=== PATIENT | female | born 1970 | race African-American/Black ===

== ENCOUNTER 2020-10-14 09:41 | Outpatient (CLI) | payer OTHER, SELFPAY ==
--- NOTE | ~2020-10-14 | MM_ITS ---
EXAMINATION: MM screening warren BI w lorin HISTORY: Screening TECHNIQUE: Craniocaudal and mediolateral oblique 3-D tomosynthesis images were obtained and synthetic 2-D images were generated. CAD analysis was submitted and interpreted. COMPARISON: Comparison to multiple prior studies sequentially, with oldest reviewed study dated 09/2014. BREAST PARENCHYMAL COMPOSITION: The breasts are heterogeneously dense, which may obscure small masses . FINDINGS: There is no evidence of suspicious mass, calcification, or architectural distortion to sugg est malignancy in either breast. There has been no suspicious interval change. IMPRESSION: 1. No mammographic evidence of malignancy. 2. Recommend routine screening mammography in one year. BI-RADS Category 1: Negative Reviewed, dictated and finalized at location A.
== END 2020-10-14 09:42 | disposition home or self-care (01) ==
LOC: ANHIMG 09:46
PROVIDERS: PCP Family Medicine; Visit Provider Obstetrics & Gynecology Gynecology
DX: Z12.31 Encounter for screening mammogram for malignant neoplasm of breast (principal)
CPT/HCPCS: 77063; 77067

== ENCOUNTER 2020-12-22 12:48 | Outpatient (CLI) | payer OTHER, SELFPAY ==
--- NOTE | ~2020-12-22 | XR_ITS ---
EXAMINATION: XR lumbar spine 2-3V DATE: 12/22/2020 13:42 INDICATION: Low back pain TECHNIQUE: Anteroposterior and lateral views of the lumbar spine, and cone-down lateral view of the l umbosacral junction were obtained. COMPARISON: None. FINDINGS: There is no fracture, dislocation, or subluxation. The vertebral body heights and intervert ebral disc spaces are normal. Small degenerative osteophytes project from the anterior endplates of m ultiple vertebral bodies. IMPRESSION: 1. Mild lumbar spondylosis without acute findings. Reviewed, dictated and finalized at location A.
--- NOTE | ~2020-12-22 | XR_ITS ---
EXAMINATION: XR thoracic spine 2V DATE: 12/22/2020 13:42 INDICATION: Back pain TECHNIQUE: AP, lateral and lateral swimmer's views of the thoracic spine were obtained. COMPARISON: None. FINDINGS: There is no fracture, dislocation, or subluxation. Mild loss of intervertebral disc space h eight is seen in the midthoracic spine. The vertebral body heights are maintained. Small degenerative osteophytes project from the anterior endplates of multiple vertebral bodies. IMPRESSION: 1. Mild thoracic spondylosis without acute findings or significant interval change. Reviewed, dictated and finalized at location A. IMPRESSION: 1. Mild thoracic spondylosis without acute findings or significant interval suad nge.
== END 2020-12-22 12:49 | disposition home or self-care (01) ==
LOC: ANHIMG 13:13
PROVIDERS: PCP Family Medicine; Visit Provider Family Medicine
DX: M79.10 Myalgia, unspecified site (principal); M47.894 Other spondylosis, thoracic region; M47.896 Other spondylosis, lumbar region
CPT/HCPCS: 72070; 72100

== ENCOUNTER 2021-12-15 08:52 | Outpatient (CLI) | payer OTHER, SELFPAY ==
--- NOTE | ~2021-12-15 | MM_ITS ---
EXAMINATION: MM screening warren BI w lorin HISTORY: Screening TECHNIQUE: Craniocaudal and mediolateral oblique 3-D tomosynthesis images were obtained and synthetic 2-D images were generated. CAD analysis was submitted and interpreted. COMPARISON: Comparison to multiple prior studies sequentially, with oldest reviewed study dated 06/30. BREAST PARENCHYMAL COMPOSITION: The breasts are heterogeneously dense, which may obscure small masses FINDINGS: There is no evidence of suspicious mass, calcification, or architectural distortion to sugg est malignancy in either breast. There has been no suspicious interval change. IMPRESSION: 1. No mammographic evidence of malignancy. 2. Recommend routine screening mammography in one year. BI-RADS Category 1: Negative Reviewed, dictated and finalized at location A.
== END 2021-12-15 08:53 | disposition home or self-care (01) ==
LOC: ANHIMG 08:58
PROVIDERS: PCP Family Medicine; Visit Provider Nurse Practitioner Obstetrics & Gynecology
DX: Z12.31 Encounter for screening mammogram for malignant neoplasm of breast (principal)
CPT/HCPCS: 77063; 77067

== ENCOUNTER 2023-01-27 08:05 | Outpatient (CLI) | payer OTHER, SELFPAY ==
--- NOTE | ~2023-01-27 | MM_ITS ---
EXAMINATION: MM screening warren BI w lorin HISTORY: Screening mammogram TECHNIQUE: Craniocaudal and mediolateral oblique 3-D tomosynthesis images were obtained and synthetic 2-D images were generated. Bilateral rotated lateral CC views. CAD analysis was submitted and interp reted. COMPARISON: 12/15/2021, 10/14/2020, 01/29/2019 bilateral screening mammogram examinations BREAST PARENCHYMAL COMPOSITION: The breasts are heterogeneously dense, which may obscure small masses . FINDINGS: Subtle grouped microcalcifications are suggested in the anterior lower mid left breast; blayne gnostic left mammogram and magnification views is recommended. Otherwise there is no evidence of suspicious mass, calcification, or architectural distortion to sugg est malignancy in either breast. There has been no other suspicious interval change. IMPRESSION: 1. Suggestion of subtle grouped microcalcifications in the lower mid left breast 2. Diagnostic left mammogram with magnification views is recommended BI-RADS Category 0: Incomplete: Needs additional imaging evaluation. Reviewed, dictated and finalized at location A. CULTURAL PLOW OPERATOR IMPRESSION: 1. Suggestion of subtle grouped microcalcifications in the lower mid left breas t 2. Diagnostic left mammogram with magnification views is recommended BI-RADS Category 0: Incomplete: Needs additional imaging evaluation.
== END 2023-01-27 08:06 | disposition home or self-care (01) ==
PROVIDERS: PCP Family Medicine; Visit Provider Family Medicine
DX: Z12.31 Encounter for screening mammogram for malignant neoplasm of breast (principal); R92.8 Other abnormal and inconclusive findings on diagnostic imaging of breast
CPT/HCPCS: 77063; 77067

== ENCOUNTER 2023-02-22 09:49 | Outpatient (CLI) | payer OTHER, SELFPAY ==
--- NOTE | ~2023-02-22 | MM_ITS ---
EXAMINATION: MM diagnostic mammo unilat LT HISTORY: Suggestion of subtle grouped microcalcifications in the lower mid left breast on 01/27/2023 screening mammogram examination TECHNIQUE: Additional 3-D tomosynthesis images of the left breast were performed and synthetic 2-D im ages were generated. Left breast ML, MLO and CC magnification views CAD analysis was submitted and in terpreted. COMPARISON: 01/28/2020 bilateral screening mammogram FINDINGS: A few scattered subtle punctate benign microcalcifications are identified. No suspicious ca lcifications are identified. No suspicious mass lesion, architectural distortion, skin thickening or retraction is noted. IMPRESSION: 1. Benign finding 2. Routine mammographic screening is recommended BI-RADS Category 2: Benign finding(s). Reviewed, dictated and finalized at location A. MO CEMENTING FOLDER OPERATOR
== END 2023-02-22 09:50 | disposition home or self-care (01) ==
PROVIDERS: PCP Family Medicine; Visit Provider Nurse Practitioner Obstetrics & Gynecology
DX: R92.1 Mammographic calcification found on diagnostic imaging of breast (principal)
CPT/HCPCS: 77065

== ENCOUNTER 2024-02-14 09:30 | Outpatient (CLI) | payer OTHER, SELFPAY ==
--- NOTE | ~2024-02-14 | MM_ITS ---
EXAMINATION: MM screening warren BI w lorin HISTORY: Screening TECHNIQUE: Craniocaudal and mediolateral oblique 3-D tomosynthesis images were obtained and synthetic 2-D images were generated. CAD analysis was submitted and interpreted. COMPARISON: Comparison to multiple prior studies sequentially, with oldest reviewed study dated 01/04. BREAST PARENCHYMAL COMPOSITION: Dense: The breasts are heterogeneously dense, which may obscure small masses FINDINGS: There is a new focal asymmetry in the medial aspect of the right breast on CC view, middle third. The left breast is stable without evidence for malignancy. IMPRESSION: 1. New focal right breast asymmetry medially, middle third, seen on CC view only. 2. Additional mammographic views and possible breast ultrasound are recommended. BI-RADS Category 0: Incomplete: Needs additional imaging evaluation. Reviewed, dictated and finalized at location B. VERY DRIVER ASSISTANT IMPRESSION: 1. New focal right breast asymmetry medially, middle third, seen on CC view onl y. 2. Additional mammographic views and possible breast ultrasound are recommended . BI-RADS Category 0: Incomplete: Needs additional imaging evaluation.
== END 2024-02-14 09:31 | disposition home or self-care (01) ==
PROVIDERS: PCP Family Medicine; Visit Provider Nurse Practitioner
DX: Z12.31 Encounter for screening mammogram for malignant neoplasm of breast (principal); R92.8 Other abnormal and inconclusive findings on diagnostic imaging of breast
CPT/HCPCS: 77063; 77067

== ENCOUNTER 2024-02-25 13:04 | Outpatient (CLI) | payer OTHER, SELFPAY ==
--- NOTE | ~2024-02-25 | MM_ITS ---
EXAMINATION TYPE: MM diagnostic warren RT w lorin COMPARISON: 02/14/2024 and dating back to 10/14/2020 REASON FOR STUDY: Single view asymmetry on previous mammography dated 02/14/2024 TECHNIQUE: Right mediolateral oblique and craniocaudal views were obtained digitally with 3-D mammog shalonda (digital breast tomosynthesis) with CAD. Spot compression views were obtained. BREAST PARENCHYMAL COMPOSITION:Dense: The breasts are heterogeneously dense, which may obscure small masses. FINDINGS: The asymmetry completely effaces with spot compression likely a summation artifact (overlapping fibro glandular tissues) for which no further follow-up is needed IMPRESSION: No mammographic or tomographic evidence to suggest the presence of malignancy. BI-RADS CATEGORY: 2: Benign findings. RECOMMENDATION: Resumption of yearly mammography Reviewed, dictated and finalized at location A. IAL PROJECTS COORDINATOR
== END 2024-02-25 13:05 | disposition home or self-care (01) ==
LOC: ANHIMG 13:05
PROVIDERS: PCP Family Medicine; Visit Provider Nurse Practitioner
DX: R92.8 Other abnormal and inconclusive findings on diagnostic imaging of breast (principal)
CPT/HCPCS: 77061; 77065; G0279

== ENCOUNTER 2025-02-20 09:00 | Outpatient (CLI) | payer OTHER, SELFPAY ==
--- NOTE | ~2025-02-20 | MM_ITS ---
EXAMINATION: MM screening warren BI w lorin HISTORY: Screening TECHNIQUE: Craniocaudal and mediolateral oblique 3-D tomosynthesis images were obtained and synthetic 2-D images were generated. CAD analysis was submitted and interpreted. COMPARISON: Comparison to multiple prior studies sequentially, with oldest reviewed study dated 10/14/2020. BREAST PARENCHYMAL COMPOSITION: Dense: The breasts are heterogeneously dense, which may obscure small masses FINDINGS: There is no evidence of suspicious mass, calcification, or architectural distortion to suggest malignancy in either breast. There has been no suspicious interval change. IMPRESSION: 1. No mammographic evidence of malignancy. 2. Recommend routine screening mammography in one year. BI-RADS Category 1: Negative Reviewed, dictated and finalized at location [facility]. [employer]
--- OUTSIDE RECORDS SUMMARY | 2025-02-20 09:18 | XMS_ITS | Data Portability ---
Author Organization [facility] [address] [facility] [place] [address] Care Team Providers Care Body Service Team Member Name Role Phone ALEX ANDERSON Primary Care Provider [phone] Assessment Encounter Date Assessment Date Assessment LastModified by Organization Details LastModified Time 02/06/2025 02/06/2025 This 54 year old patient presents with symptoms most suggestive of viral upper respiratory tract infection , lung sounds clear through out. Oral pharynx mild erythema without edema Patient is discharged home in stable condition with expectant management. Return precautions were provided. Procedures: Pulse oximetry interpretation - not hypoxic. Review of medical records. DISPOSITION: Discharged home in stable condition. IMPRESSION: Acute upper respiratory tract infection, likely viral. viral laryngitis Not available 02/06/2025 12:24:50 Plan of Treatment Reminders Order Date Submit Date Provider Last Modified By Organization Details Last Modified Time Details Appointments ANY 15 2025 02:30P Bere Anderson MD Not available Not available Not available Lab influe nza virus A + B + SARS-C oV-2 (COVID 19) Ag panel, rapid IA, upper respir atory specim en 2024 025 In-Office Order, Internal Use Only DO Not Attach Compendium DO Not Attach Compendium, Do Not Delete/merge, [id number] 02/06/2025 12:25:26 rapid strep group A, throat 2024 025 In-Office Order, Internal Use Only DO Not Attach Compendium DO Not Attach Compendium, Do Not Delete/merge, [id number] 02/06/2025 12:25:26 Referral None record ed. Procedures None record ed. Surgeries None record ed. Imaging [facility] screen ing[facility] [address] [place], [address], 02/10/2025 11:08:28 MAMMO, screen ing, bilate [facility]al [facility] [address], [place], [address], 01/27/2025 16:50:40 Medication Orders losart an 100 mg tablet 2024 [facility] #[id number], [address] [place] [address], [id number], 01/27/2025 16:37:20 isosor bide mononi trate ER 120 mg tablet ,exten ded releas e 24 hr 2024 025 [facility] #[id number], [address] [place] [address], [id number], 01/27/2025 16:37:16 losart an 100 mg tablet 2024 025 [facility] #[id number], [address] [place] [address], [id number], 10/27/2024 15:37:23 isosor bide mononi trate ER 120 mg tablet ,exten ded releas e 24 hr 2024 025 [id number], [address] [place] [address], [id number], 10/27/2024 15:37:18 Patient TargetsNo targets recorded. Patient Instructions Encounter Date Encounter Id Patient Instructions Last Modified By Organization Details Last Modified Time 10/08/2024 [id number] A healthy lifestyle: care instructions Not available 10/20/2024 10:10:24 Quitting Tobacco : Care Instructions Not available 10/20/2024 10:10:24 10/27/2024 [id number] mammogram: about this test Not available 10/27/2024 15:46:21 allergies: care instructions Not available 10/27/2024 15:41:39 A healthy lifestyle: care instructions Not available 10/27/2024 15:37:12 back care and preventing injuries: care instructions Not available 10/27/2024 15:37:12 01/27/2025 [id number] allergies: care instructions Not available 01/27/2025 16:37:11 mammogram: about this test Not available 01/27/2025 16:37:11 A healthy lifestyle: care instructions Not available 01/27/2025 16:37:11 back care and preventing injuries: care instructions Not available 01/27/2025 16:37:10 learning about healthy weight Not available 01/27/2025 16:37:10 02/06/2025 [id number] A healthy lifestyle: care instructions Not available 02/06/2025 12:25:25 Continue to take Tylenol and Motrin for body aches and fevers Push oral hydration- drink lots of water Get plenty of rest Continue voice rest to help your voice return. Follow up with your PCP in 3-5 days If you develop any worsening symptoms/ shortness of breath/ chest pain unable to keep liquids down or any other worsening symptoms then proceed to the ER. Not available 02/06/2025 12:26:05 02/10/2025 [id number] mammogram: about this test Not available 02/10/2025 11:07:37 allergies: care instructions Not available 02/10/2025 11:07:37 A healthy lifestyle: care instructions Not available 02/10/2025 11:07:37 Reason for Referral None Reported. Results Created Date Observation Date Name Description Value Unit Range Abnormal Flag Note LastModifiedBy Organization Detail LastModifiedTime 02/07/20 02/06/2025 influ kalina virus A + B + SARS- CoV-2 (COVI D19) Ag panel , rapid IA, upper respi rator y speci men Flu A negati ve Not Available In-Office Order Internal Use Only DO Not Attach Compendium DO Not Attach Compendium, Do Not Delete/merge, [id number] 02/06/2025 12:11:18 02/07/20 25 02/06/2025 influ kailna virus A + B + SARS- CoV-2 (COVI D19) Ag panel , rapid IA, upper respi rator y speci men Flu B negati ve Not Available In-Office Order Internal Use Only DO Not Attach Compendium DO Not Attach Compendium, Do Not Delete/merge, [id number] 02/06/2025 12:11:18 02/07/20 25 02/06/2025 influ kalina virus A + B + SARS- CoV-2 (COVI D19) Ag panel , rapid IA, upper respi rator y speci men Rapid SARS CoV 2 Ag, QL IA, respiratory specimen negati ve Not Available In-Office Order Internal Use Only DO Not Attach Compendium DO Not Attach Compendium, Do Not Delete/merge, [id number] 02/06/2025 12:11:18 02/07/2002/06/2025 rapid strep group A, throa t Strep negati ve Not Available In-Office Order Internal Use Only DO Not Attach Compendium DO Not Attach Compendium, Do Not Delete/merge, [id number] 02/06/2025 12:11:22 Result Notes None recorded. Problems Name Problem SNOMED Code Status Onset Date Resolution Date Notes Provider Name and Address Organization Details Recorded Time Allergic rhinitis 56910959 Active Not Available [facility] 4 20:16:06 Tuberculos is screening Active 2016 Not Available [facility] 4 20:16:06 Amenorrhea 04033756 Active 2016 Not Available [facility] 4 20:16:06 Physical examinatio n 7589361 Active 2018 Not Available [facility] 4 20:16:06 Requires tetanus and diphtheria vaccinatio n 693734509 Active [address] [facility] 4 20:16:07 Acute sinusitis 23555291 Active 2021 Not Available [facility] 4 20:16:06 Pharyngiti s 159288669 Active 2021 Not Available [facility] 4 20:16:06 Hyperlipid emia 08104696 Active 2021 Not Available [facility] 4 20:16:06 Polyneurop athy 80741346 Active 2021 Hilda Larsen MA null, [place] - [facility] 5 11:35:49 Lumbar spondylosi s 951818033 Active [address] [facility] 4 20:16:06 Neuropathy 437825927 Active 2021 Not Available [facility] 4 20:16:06 Left side sciatica 2084234991883 04 Active [address] [facility] 4 20:16:06 Blood pressure above reference range 05334831 Active [address] [facility] 4 20:16:06 Problem Notes None recorded. Procedures Surgical History Date Name Laterality Status Provider Name and Address Organization Details Recorded Time 4 Date of Last Mammogram completed Hilda Larsen [place] [facility] 07/25/2024 11:37:02 0 Date of Last Pap Smear completed Hilda Larsen [place] [facility] 07/25/2024 11:37:21 Imaging Results None recorded. Procedure Notes None recorded. Medical Equipment None Reported. Allergies Allergen ID Allergen Name Allergen Category Reaction Reaction Severity Criticality Documentation Date Start Date Code Code System Note Provider Name and Address Organization Details Recorded Time 369901 amlodipin e medicatio n edema mild Not available 06/25/2023 43633 RxNorm Alex Anderson MD Attn: Jeremy angelia,[address] [facility], [place], [address] [facility] [place] - [facility] 4 16:17:09 [id number] Substance with sulfonami de structure and antibacte rial mechanism of action (substanc e) medicatio n rash Not available low 08/03/20152018 56356 8003 SNOMED Hilda Larsen MA [facility], [place] - [facility] 5 11:34:50 Medications Name Sig Start Date Stop Date Status Note LastModified by Organization Details LastModified Time losartan 50 mg tablet TAKE 1 TABLET BY MOUTH EVERY DAY active Not Available Not Available No t Available cyclobenzap rine 10 mg tablet active Not Available Not Available Not Available amoxicillin 500 mg capsule 10/23 completed Not Available Not Available Not Available promethazin e-DM 6.25 mg-15 mg/5 mL oral syrup TAKE 5 ML BY MOUTH EVERY 4 HOURS FOR 10 DAYS active Not Available Not Available No t Available atorvastati n 20 mg tablet TAKE 1 TABLET BY MOUTH EVERY DAY active Not Available Not Available No t Available triazolam 0.25 mg tablet 10/23 completed Not Available Not Available Not Available triamcinolo ne acetonide 0.5 % topical cream APPLY A THIN LAYER TOPICALLY TO THE AFFECTED AREA TWICE DAILY active Not Available Not Available No t Available cetirizine 10 mg tablet TAKE 1 TABLET BY MOUTH EVERY DAY active Not Available Not Available No t Available azithromyci n 250 mg tablet TAKE 2 TABLETS (500 MG) BY ORAL ROUTE ONCE DAILY FOR 1 DAY THEN 1 TABLET (250 MG) BY ORAL ROUTE ONCE DAILY FOR 4 DAYS active Not Available Not Available No t Available ibuprofen 800 mg tablet TAKE 1 TABLET BY MOUTH THREE TIMES DAILY WITH FOOD active Not Available Not Available No t Available Lidocaine Viscous 2 % mucosal solution 07/04 completed Not Available Not Available Not Available fluconazole 150 mg tablet TAKE 1 TABLET BY MOUTH NEEDED FOR YEAST INFECTION . active Not Available Not Available No t Available hydrocodone 5 mg-acetamin ophen 325 mg tablet TAKE 1 TABLET BY MOUTH EVERY 6 HOURS NEEDED FOR PAIN active Not Available Not Available No t Available prednisone 20 mg tablet Take 3 tablets every day by oral route for 3 days. active Not Available Not Available No t Available isosorbide mononitrate ER 30 mg tablet,exte nded release 24 hr TAKE 1 TABLET BY MOUTH EVERY DAY 10/05 completed Not Available Not Available Not Available Tubersol 5 tub. unit/0.1 mL intradermal injection solution Inject 0.1 mL by intraderm al route. 2022 active Not Available Not Available Not Avai lable amlodipine 5 mg tablet TAKE 1 TABLET BY MOUTH EVERY DAY 11/27 completed Not Available Not Available Not Available ciprofloxac in 500 mg tablet TAKE 1 TABLET BY MOUTH EVERY 12 HOURS FOR 10 DAYS 07/04 completed Not Available Not Available Not Available tramadol 50 mg tablet TAKE 1 TABLET BY MOUTH EVERY 6 HOURS NEEDED FOR PAIN active Not Available Not Available No t Available isosorbide mononitrate ER 120 mg tablet,exte nded release 24 hr Take 1 tablet every day by oral route for 90 days. 2024 active Not Available Not Available Not Avai lable Kenalog 40 mg/mL suspension for injection Take 1 mL by injection route. 07/04 completed Not Available Not Available Not Available isosorbide mononitrate ER 60 mg tablet,exte nded release 24 hr TAKE 1 TABLET BY MOUTH EVERY DAY active Not Available Not Available No t Available amoxicillin 875 mg tablet TAKE 1 TABLET BY MOUTH EVERY 12 HOURS FOR 10 DAYS 07/04 completed Not Available Not Available Not Available baclofen 10 mg tablet Take 1 tablet twice a day by oral route for 30 days. 07/04 completed Not Available Not Available Not Available benzonatate 100 mg capsule TAKE 1 CAPSULE BY MOUTH THREE TIMES DAILY NEEDED FOR COUGH active Not Available Not Available No t Available doxycycline monohydrate 100 mg capsule 10/23 completed Not Available Not Available Not Available pantoprazol e 40 mg tablet,donita yed release active Not Available Not Available Not Available diphenhydra mine 25 mg tablet Take 1 tablet every day by oral route at bedtime for 30 days. 2021 active Not Available Not Available Not Avai lable Banophen 25 mg capsule TAKE 1 CAPSULE BY MOUTH EVERY DAY AT BEDTIME active Not Available Not Available No t Available montelukast 10 mg tablet TAKE 1 TABLET BY MOUTH EVERY DAY DIRECTED 2024 active Not Available Not Available Not Avai lable azelastine 137 mcg (0.1 %) nasal spray USE 2 SPRAYS IN EACH NOSTRIL EVERY DAY active Not Available Not Available No t Available ibuprofen 600 mg tablet 07/04 completed Not Available Not Available Not Available methylpredn isolone 4 mg tablets in a dose pack Take 1 dose pk by oral route. 11/27 completed Not Available Not Available Not Available Vitamin D2 1,250 mcg (50,000 unit) capsule 10/23 completed Not Available Not Available Not Available losartan 100 mg tablet TAKE 1 TABLET BY MOUTH EVERY DAY 2024 active Not Available Not Available Not Avai lable fluticasone propionate 50 mcg/actuati on nasal spray,suspe nsion SHAKE LIQUID AND USE 2 SPRAYS IN EACH NOSTRIL EVERY DAY 2024 active Not Available Not Available Not Avai lable loratadine 10 mg tablet TAKE 1 TABLET BY MOUTH EVERY DAY 07/04 completed Not Available Not Available Not Available naproxen 500 mg tablet TAKE 1 TABLET BY MOUTH TWICE DAILY active Not Available Not Available No t Available amoxicillin 875 mg-potassiu m clavulanate 125 mg tablet Take 1 tablet every 12 hours by oral route for 7 days, for sinusitis . 11/27 completed Not Available Not Available Not Available Ventolin HFA 90 mcg/actuati on aerosol inhaler 07/04 completed Not Available Not Available Not Available cyclobenzap rine 5 mg tablet TAKE 1 TABLET BY MOUTH TWICE DAILY active Not Available Not Available No t Available 1.5/30 (28) 1.5 mg-30 mcg (21)/75 mg (7) tablet TAKE 1 TABLET BY MOUTH EVERY DAY active Not Available Not Available No t Available Suprep Bowel Prep Kit 17.5 gram-3.13 gram-1.6 gram oral solution Take 300 mL by oral route for 1 day. 10/23 completed Not Available Not Available Not Available Robafen DM Cough 10 mg-100 mg/5 mL oral liquid TAKE 10 ML BY MOUTH FOUR TIMES DAILY NEEDED FOR 7 DAYS 07/04 completed Not Available Not Available Not Available Robitussin Cough-Chest Congestion DM 5 mg-100 mg/5 mL oral liquid Take 10 mL 4 times a day by oral route for 7 days. 2021 active Not Available Not Available Not Avai lable Vitals Date Recorded Body height Body mass index (BMI) Body weight Provider Name and Address Organization Details Last Updated DateTime 10/08/2024 160.02 cm 27.1 kg/m2 13659.33 g Darrion Armstrong LPN [place] - [facility] 10/08/2024 11:53:13 Date Recorded Heart rate Systolic And Diastolic Provider Name and Address Organization Details Last Updated DateTime 10/08/2024 96 /min 127/92 mm[Hg] Not Available [facility] 0 10/08/2024 07:56:55 Date Recorded Heart rate Systolic And Diastolic Provider Name and Address Organization Details Last Updated DateTime 10/09/2024 82 /min 136/92 mm[Hg] Not Available [facility] 0 10/09/2024 07:25:33 Date Recorded Heart rate Heart rate Systolic And Diastolic Systolic And Diastolic Provider Name and Address Organization Details Last Updated DateTime 10/16/2024 77 /min 78 /min 156/94 mm[Hg] 147/91 mm[Hg] Not Available [facility] 10/20/2024 07:22:44 Date Recorded Heart rate Systolic And Diastolic Provider Name and Address Organization Details Last Updated DateTime 10/20/2024 91 /min 129/87 mm[Hg] Not Available [facility] 0 10/20/2024 07:22:44 Date Recorded Heart rate Systolic And Diastolic Provider Name and Address Organization Details Last Updated DateTime 10/24/2024 95 /min 119/85 mm[Hg] Not Available [facility] 0 10/24/2024 07:37:01 Date Recorded Body height Body mass index (BMI) Body weight Oxygen saturation Heart rate Respiratory rate Body temperature Systolic And Diastolic Provider Name and Address Organization Details Last Updated DateTime 160.02 cm 27.7 kg/m2 25093.5 1 g 98 % 79 /min 18 /min 98.4 [degF] 158/85 mm[Hg] Adolfo Crews MA [place] - [facility] 15:30:33 Date Recorded Heart rate Systolic And Diastolic Provider Name and Address Organization Details Last Updated DateTime 10/27/2024 93 /min 138/85 mm[Hg] Not Available [facility] 0 10/27/2024 06:20:51 Date Recorded Heart rate Heart rate Systolic And Diastolic Systolic And Diastolic Provider Name and Address Organization Details Last Updated DateTime 10/28/2024 82 /min 93 /min 116/80 mm[Hg] 124/85 mm[Hg] Not Available [facility] 10/28/2024 07:16:08 Date Recorded Heart rate Systolic And Diastolic Provider Name and Address Organization Details Last Updated DateTime 10/30/2024 85 /min 146/90 mm[Hg] Not Available [facility] 0 11/01/2024 08:40:06 Date Recorded Heart rate Systolic And Diastolic Provider Name and Address Organization Details Last Updated DateTime 11/12/2024 86 /min 144/85 mm[Hg] Not Available [facility] 0 11/24/2024 08:52:54 Date Recorded Heart rate Heart rate Systolic And Diastolic Systolic And Diastolic Provider Name and Address Organization Details Last Updated DateTime 11/24/2024 93 /min 90 /min 111/78 mm[Hg] 104/68 mm[Hg] Not Available [facility] 11/25/2024 08:03:10 Date Recorded Heart rate Systolic And Diastolic Provider Name and Address Organization Details Last Updated DateTime 11/25/2024 89 /min 135/89 mm[Hg] Not Available [facility] 0 11/25/2024 08:03:10 Date Recorded Heart rate Systolic And Diastolic Provider Name and Address Organization Details Last Updated DateTime 11/26/2024 83 /min 136/88 mm[Hg] Not Available [facility] 0 11/26/2024 07:22:38 Date Recorded Heart rate Systolic And Diastolic Provider Name and Address Organization Details Last Updated DateTime 11/28/2024 82 /min 149/90 mm[Hg] Not Available [facility] 0 11/28/2024 07:33:30 Date Recorded Heart rate Systolic And Diastolic Provider Name and Address Organization Details Last Updated DateTime 12/05/2024 76 /min 160/100 mm[Hg] Not Available [facility] 12/05/2024 07:28:16 Date Recorded Heart rate Systolic And Diastolic Provider Name and Address Organization Details Last Updated DateTime 12/14/2024 72 /min 164/94 mm[Hg] Not Available [facility] 1 06:18:44 Date Recorded Heart rate Systolic And Diastolic Provider Name and Address Organization Details Last Updated DateTime 12/15/2024 70 /min 153/95 mm[Hg] Not Available [facility] 1 06:18:44 Date Recorded Heart rate Systolic And Diastolic Provider Name and Address Organization Details Last Updated DateTime 12/21/2024 80 /min 136/90 mm[Hg] Not Available [facility] 1 06:43:07 Date Recorded Heart rate Systolic And Diastolic Provider Name and Address Organization Details Last Updated DateTime 12/28/2024 82 /min 148/96 mm[Hg] Not Available [facility] 1 07:18:47 Date Recorded Heart rate Systolic And Diastolic Provider Name and Address Organization Details Last Updated DateTime 12/29/2024 98 /min 144/96 mm[Hg] Not Available [facility] 1 03/06/2024 05:08:02 Date Recorded Heart rate Systolic And Diastolic Provider Name and Address Organization Details Last Updated DateTime 01/04/2025 75 /min 132/76 mm[Hg] Not Available [facility] 1 03/06/2024 05:08:54 Date Recorded Heart rate Systolic And Diastolic Provider Name and Address Organization Details Last Updated DateTime 01/05/2025 97 /min 143/89 mm[Hg] Not Available [facility] 1 03/07/2024 07:06:06 Date Recorded Heart rate Systolic And Diastolic Provider Name and Address Organization Details Last Updated DateTime 01/07/2025 82 /min 147/101 mm[Hg] Not Available [facility] 01/07/2025 07:11:29 Date Recorded Heart rate Systolic And Diastolic Provider Name and Address Organization Details Last Updated DateTime 01/08/2025 85 /min 151/101 mm[Hg] Not Available [facility] 01/14/2025 14:45:20 Date Recorded Heart rate Systolic And Diastolic Provider Name and Address Organization Details Last Updated DateTime 01/13/2025 71 /min 171/92 mm[Hg] Not Available [facility] 1 03/25/2024 06:37:17 Date Recorded Heart rate Systolic And Diastolic Provider Name and Address Organization Details Last Updated DateTime 01/23/2025 78 /min 143/89 mm[Hg] Not Available [facility] 1 03/25/2024 06:37:17 Date Recorded Heart rate Systolic And Diastolic Provider Name and Address Organization Details Last Updated DateTime 01/25/2025 96 /min 124/81 mm[Hg] Not Available [facility] 1 03/27/2024 05:50:39 Date Recorded Heart rate Heart rate Systolic And Diastolic Systolic And Diastolic Provider Name and Address Organization Details Last Updated DateTime 01/26/2025 110 /min 111 /min 95/71 mm[Hg] 108/80 mm[Hg] Not Available [facility] 01/27/2025 06:10:33 Date Recorded Body height Body mass index (BMI) Body weight Oxygen saturation Heart rate Respiratory rate Body temperature Systolic And Diastolic Provider Name and Address Organization Details Last Updated DateTime 160.02 cm 25.7 kg/m2 80821.8 9 g 99 % 79 /min 18 /min 98 [degF] 124/79 mm[Hg] Adolfo Crews MA [facility] 15:56:06 Date Recorded Heart rate Heart rate Systolic And Diastolic Systolic And Diastolic Provider Name and Address Organization Details Last Updated DateTime 01/27/2025 82 /min 74 /min 118/86 mm[Hg] 113/80 mm[Hg] Not Available [facility] 02/04/2025 09:16:31 Date Recorded Heart rate Systolic And Diastolic Provider Name and Address Organization Details Last Updated DateTime 02/04/2025 89 /min 132/73 mm[Hg] Not Available [facility] 1 04/07/2024 09:16:29 Date Recorded Body height Body mass index (BMI) Body weight Oxygen saturation Heart rate Respiratory rate Body temperature Systolic And Diastolic Provider Name and Address Organization Details Last Updated DateTime 160.02 cm 26.6 kg/m2 05009.6 1 g 96 % 76 /min 18 /min 98.4 [degF] 172/84 mm[Hg] Chandrika Sullivan MA [place] - [facility] 12:10:03 Date Recorded Body height Body mass index (BMI) Body weight Oxygen saturation Heart rate Respiratory rate Body temperature Systolic And Diastolic Provider Name and Address Organization Details Last Updated DateTime 5 160.02 cm 26.2 kg/m2 54517.3 7 g 97 % 85 /min 18 /min 97.9 [degF] 147/85 mm[Hg] Adolfo Crews MA [facility] 5 10:28:05 Social History Question Answer Notes LastModified by Organizat ion Details LastModified Time Tobacco Smoking Status Former Smoker LAQUITA Borden [facility] 12/20/2015 14:24:00 Do You Have An Advance Directive? No [email or web address] Information not available 07/04/2021 How Often Do You Travel On An Airplane? None Information not available 12/20/2015 Animal Exposure? No Informat ion not available 12/20/2015 Are You Blind Or Do You Have Difficulty Seeing? No Wears Glasses Information not available 09/27/2020 What Is Your Level Of Caffeine Consumption? Moderate Information not available 12/20/2015 In The 14 Days Before Symptom Onset, Have You Had Close Contact With A Laboratory-confir med COVID-19 While That Case Was Ill? No Information not available 09/27/2020 In The 14 Days Before Symptom Onset, Have You Had Close Contact With A Person Who Is Under Investigation For COVID-19 While That Person Was Ill? No Information not available 09/27/2020 Have You Been To An Area Known To Be High Risk For COVID-19? No Information not available 09/27/2020 Are You Deaf Or Do You Have Serious Difficulty Hearing? No Information not available 09/27/2020 What Type Of Diet Are You Following? REGULAR Information not available 12/20/2015 Which Illicit Or Recreational Drugs Have You Used? None Information not available 12/20/2015 Exposure To Cat Litter No Information not available 12/20/2015 Are There Any Guns Present In Your Home? No Information not available 07/25/2024 Legally Blind In One Or Both Eyes? No Information no t available 12/20/2015 Do You Have A Medical Power Of Sustainable Communities Designer? No [email or web address] Information not available 10/07/2021 What Was The Date Of Your Most Recent Tobacco Screening? 02/06/2025 Information not available 02/06/2025 How Many Children Do You Have? 1 Information not available 09/27/2020 What Is Your Current Pack Years? 10packyears Information not available 08/27/2023 What Is Your Relationship Status? Single Information not available 09/27/2020 Do You Use Your Seat Belt Or Car Seat Routinely? Yes Information not available 09/27/2020 Are You Sexually Active? Yes Information not available 07/25/2024 Do You Have Smoke And Carbon Monoxide Detectors In Your Home? Yes Information not available 09/27/2020 Are You Passively Exposed To Smoke? No Information no t available 09/27/2020 How Much Tobacco Do You Smoke? 0.25 PPD Information not available 12/20/2015 Snorkel/SCUBA No Information not available 12/20/2015 Do You Use Sunscreen Routinely? No Information not available 07/25/2024 Swim Often No Information no t available 12/20/2015 Has Tobacco Cessation Counseling Been Provided? Yes [email or web address] Information not available 10/08/2024 On What Date Was Tobacco Cessation Counseling Provided? 02/06/2025 Information not available 02/06/2025 Sex: Female Functional Status Question Answer Note LastModified by Organizat ion Details LastModified Time Do you use any illicit or recreational drugs? No Denies Information not available 09/27/2020 Do you or have you ever used any other forms of tobacco or nicotine? Yes Information not available 07/15/2022 What is your level of alcohol consumption? None Denies Information not available 09/27/2020 Do you or have you ever used smokeless tobacco? Never used smokeless tobacco Information not available 08/27/2023 Are you currently employed? Yes Information not available 09/27/2020 Are you able to care for yourself independently? Yes Information not available 12/20/2015 Do you or have you ever used e-cigarettes or vape? Current user of electronic cigarettes vape user Information not available 07/15/2022 What is your exercise level? None Information not available 08/27/2023 Mental Status Question Answer Note LastModified by Organization D etails LastModified Time Do you feel stressed (tense, restless, nervous, or anxious, or unable to sleep at night)? [id number] Information not available 08/27/2023 Family History Nothing Reported. Medical History Condition Response Allergies/Hayfever Y Coronary Artery Disease N Other N High Blood Pressure N Atrial Fibrillation N Thyroid Problems N Kidney or Bladder Problems N GI Problems N Depression N COPD N Blood Clots N Have you had a mammogram in the last yea r? Y Skin Problems N Anemia N Heart Attack (DC) N Anxiety Disorder N Diabetes N Muscle, Joint, or Bone Problems N Arthritis N Seizures/Epilepsy N Have you had a colonoscopy in the last 1 0 years? N Acid Reflux (GERD) N Cancer N Stroke N Asthma N Allergies N Have you had a PSA blood test in the las t year? N ADHD N Substance Abuse N High Cholesterol N Hepatitis N Liver Disease N Schizophrenia N Headaches N Hypertension N Heart Failure N Osteoporosis N Gynecological History Statement/Question Response Menses Monthly N Date of Last Pap Smear 10/10/2019 Current Control Method Menopause Date of Last Mammogram 02/25/2024 Date of LMP 06/12/2016 On BCP's at Conception? N Obstetrics History GPAL:G 0 P 0 0 0 0 Immunizations Vaccine Type Date Status Note Provider Nam e and Address Organization Details Recorded Time COVID-19, mRNA, LNP-S, PF, 100 mcg/0.5mL dose or 50 mcg/0.25mL dose 05/18/2020 completed Not Available [facility] 5 09:55:44 COVID-19, mRNA, LNP-S, PF, 100 mcg/0.5mL dose or 50 mcg/0.25mL dose 06/15/2020 completed Not Available [facility] 5 09:55:44 Tdap 11/14/[address] [facility] 03/22/2019 02:38:07 Hep A, adult 08/27/2023 completed Bony Barth [facility] [place] - [facility] 08/27/2023 16:18:11 Past Encounters Encounter ID Performer Location Encounter Start Date Encounter Closed Date Diagnosis/Indication Diagnosis SNOMED-CT Code Diagnosis ICD10 Code Diagnosis IMO Codes Diagnosis Note [id number] Alex Anderson MD [address] [address] 3 08/03/2015 16:16:05 08/09/2015 11:44:13 Adult health examination 861396958 Z00.00 labs done by OB... follow up once available. .. Allergic rhinitis 692724 04 J30.9 clear nasal discharge. .. [id number] Alex Anderson MD [address] [address] 3 11/02/2015 11:44:19 11/04/2015 03:48:25 Allergic rhinitis 55334340 J30.9 clear nasal discharge. .. Adult heal th examination 018527350 Z00.00 labs and follow up... [id number] Maik Khan MD [facility] ts [address] [place] [address] 2 12/20/2015 13:36:13 12/20/2015 17:43:17 Allergic rhinitis 97173872 J30.9 has Flonase; instructed in proper use [id number] Maik Khan MD [address] [address] 02/07/2016 11:48:44 02/08/2016 11:37:06 Allergic rhinitis 07777855 J30.9 has Flonase; instructed in proper use [id number] Alex Anderson MD [address] [address] 3 03/23/2016 11:51:17 03/27/2016 09:40:06 Allergic rhinitis 37160400 J30.9 meds and follow up... Adult heal th examination 537254978 Z00.00 labs and follow up... sees OB for pap/warren [id number] Alex Anderson MD [address] [address] 3 04/07/2016 10:13:57 04/27/2016 09:32:40 Adult health examination 242616795 Z00.00 labs and follow up... sees OB for pap/warren [id number] Maik Khan MD [facility] [address] [place] [address] 2 05/08/2016 10:09:08 05/08/2016 15:53:03 Allergic rhinitis 83318599 J30.9 has Flonase; instructed in proper use [id number] Alex Anderson MD [address] [address] 3 05/19/2016 11:55:15 05/22/2016 13:58:46 Allergic rhinitis 31111785 J30.9 meds and follow up... Low back pain 788376640 M54.5 [id number] Lowell Liu PA-C [address] [address] 3 05/27/2016 10:38:54 2016 08:11:58 Tuberculosis screening 553286194 Z11.1 [id number] Maik Khan MD [facility] [address] [place] [address] 08/14/2016 10:41:46 08/14/2016 14:08:30 Allergic rhinitis 73309934 J30.9 has Flonase; instructed in proper use [id number] Lowell Liu PA-C [address] [address] 3 08/26/2016 10:09:34 08/30/2016 08:07:31 Amenorrhea 08371312 N91.2 [id number] Alex Anderson MD [address] [address] 3 11/13/2016 10:13:40 11/13/2016 15:30:32 Allergic rhinitis 49592215 J30.9 meds and follow up... [id number] Alex Anderson MD [address] [address] 3 07/26/2017 11:38:46 07/26/2017 14:34:07 Allergic rhinitis 17997481 J30.9 meds and follow up... Adult heal th examination 063267515 Z00.00 labs and follow up... sees OB for pap/warren Family his tory of cancer of colon 589141522 Z80.0 mom had Ca at 57 y.o.... refer [id number] Alex Anderson MD [address] [address] 09/21/2017 11:42:18 09/25/2017 11:17:28 Allergic rhinitis 99928984 J30.9 meds and follow up... Nasacort.. . Low back pain 988355901 M54.5 PT and pain medication s... Lyrica samples.. [id number] Alex Anderson MD [place] [address] 3 09/25/2017 18:06:01 09/27/2017 09:57:38 Allergic rhinitis 78485827 J30.9 meds and follow up... Nasacort.. . Low back pain 456020382 M54.5 PT and pain medication s... start Lyrica 50 mg TID..... dx with OA by x-ray... Adult heal th examination 123888328 Z00.00 labs and follow up... sees OB for pap/warren [id number] Alex Anderson MD [place] [address] 3 10/10/2017 10:35:02 10/11/2017 09:13:13 Adult health examination 136591589 Z00.00 labs and follow up... sees OB for pap/warren [id number] Alex Anderson MD [place] [address] 3 12/11/2017 18:19:40 12/13/2017 08:32:26 Low back pain 929483711 M54.5 PT and pain medication s... start Lyrica 50 mg TID..... dx with OA by x-ray... [id number] Alex Anderson MD [place] [address] 3 04/17/2018 15:52:50 04/18/2018 08:36:44 Allergic rhinitis 12893471 J30.9 meds and follow up... Low back pain 849190376 M54.5 refill meds... Acute dermatitis 7904512 6 L30.9 rash on left arms... [id number] Alex Anderson MD [place] [address] 3 08/26/2018 14:43:13 08/26/2018 17:17:08 Allergic rhinitis 77181179 J30.9 meds and follow up... Low back pain 633020261 M54.5 refill meds... Acute dermatitis 1941391 6 L30.9 rash on left arms... Adult heal th examination 738693366 Z00.00 labs and follow up... sees OB for pap/warren... Dec 05, 2018, colonoscop y scheduled [id number] Shine He MD [place] [address] 3 11/14/2018 18:46:14 11/15/2018 09:59:01 Physical examination 8039660 Z04.9 Tuberculos is screening 332056117 Z11.1 Requires t etanus and diphtheria vaccination 632310592 Z28.3 [id number] Alex Anderson MD [address] [address] 3 02/06/2019 16:31:18 02/07/2019 08:58:06 Allergic rhinitis 36629504 J30.9 meds and follow up... Low back pain 916162352 M54.5 refill meds... Acute dermatitis 6863560 6 L30.9 rash on left arms... Adult heal th examination 314538923 Z00.00 labs and follow up... sees OB for pap/warren... Screening for malignant neoplasm of colon 115846705 Z12.11 refer [id number] Alex Anderson MD [address] [address] 3 09/02/2019 12:43:56 09/03/2019 07:43:15 Allergic rhinitis 04348436 J30.9 meds and follow up... Low back pain 613099648 M54.5 refill meds... Acute dermatitis 8257215 6 L30.9 rash on left arms... Adult heal th examination 510911330 Z00.00 labs and follow up... Screening for malignant neoplasm of colon 144889352 Z12.11 refer... Fatigue 50156546 R53.83 labs [id number] Alex Anderson MD [address] [address] 3 10/02/2019 12:25:43 10/03/2019 07:25:03 Allergic rhinitis 46344696 J30.9 meds and follow up... Low back pain 910055813 M54.5 refill meds... Acute dermatitis 5891217 6 L30.9 rash on left arms... Adult heal th examination 616446806 Z00.00 labs and follow up... Screening for malignant neoplasm of colon 329724200 Z12.11 refer... [id number] Alex Anderson MD [address] [address] 3 12/01/2019 11:44:04 12/02/2019 11:28:12 Allergic rhinitis 98825046 J30.9 meds and follow up... Low back pain 850796043 M54.5 refill meds... Acute dermatitis 6612364 6 L30.9 rash on left arms... Adult heal th examination 795828376 Z00.00 labs and follow up... Family his tory of cancer of colon 312214156 Z80.0 mom had Ca at 57 y.o.... refer [id number] Alex Anderson MD [address] [address] 3 12/31/2019 12:05:13 01/01/2020 08:31:23 Low back pain 906167930 M54.5 refill meds... stop ibuprofen. .. Allergic rhinitis 980885 04 J30.9 meds and follow up... Acute dermatitis 6013265 6 L30.9 rash on left arm... Adult heal th examination 686162416 Z00.00 labs and follow up... Family his tory of cancer of colon 727635903 Z80.0 mom had Ca at 57 y.o.... refer [id number] Ghassan Ernst MD [address] [address] 3 09/27/2020 17:50:57 09/28/2020 12:32:28 History and physical examination, pre-employment 746189276 Z02.1 [id number] Alex Anderson MD [address] [address] 3 12/14/2020 13:24:03 12/16/2020 17:27:01 Musculoskeletal pain 061960067 M79.10 x-ray Thoracic back pain 54924 8004 M54.6 x-ray Fatigue 42918462 R53.83 labs Screening colonoscopy 44 8467477 Z12.11 refer [id number] Alex Anderson MD [address] [address] 3 12/22/2020 10:02:35 12/23/2020 07:54:53 [id number] Alex Anderson MD [address] [address] 3 01/04/2021 09:32:00 01/06/2021 13:12:12 Allergic rhinitis 76775894 J30.9 meds and follow up... Hyperlipidemia 02780201 E78.5 start meds and chek in 3 months or so... Lumbar spondylosis 75705 0009 M47.896 refer to PT Family his tory of cancer of colon 919014434 Z80.0 mom had Ca at 57 y.o.... refer [id number] Alex Anderson MD [address] [address] 3 02/16/2021 10:27:07 02/17/2021 11:06:56 Allergic rhinitis 01091252 J30.9 meds and follow up... Hyperlipidemia 03662148 E78.5 start meds and chek in 3 months or so... Lumbar spondylosis 47792 0009 M47.896 refer to PT Family his tory of cancer of colon 455247852 Z80.0 mom had Ca at 57 y.o.... refer.. appt 04-06-2021 [id number] Shine He MD [address] [address] 3 03/17/2021 16:58:41 03/18/2021 06:58:15 Acute sinusitis 43607640 J01.90 [id number] Alex Anderson MD [address] [address] 3 04/08/2021 11:42:55 04/12/2021 08:36:23 Allergic rhinitis 10737735 J30.9 meds and follow up... Hyperlipidemia 06570778 E78.5 atorvastat in Lumbar spondylosis 35164 0009 M47.896 refer to PT Family his tory of cancer of colon 489249395 Z80.0 mom had Ca at 57 y.o.... refer.. appt 06-27-2021 [id number] Alex Anderson MD [address] [address] 3 06/07/2021 14:30:28 06/08/2021 21:01:25 Allergic rhinitis 65997610 J30.9 meds and follow up... [id number] Jan Hughes MD [facility] [address] [place] [address] 07/04/2021 09:43:47 08/04/2021 11:32:03 Chronic sinusitis 58308590 J32.9 [id number] Alex Anderson MD [address] [address] 3 07/19/2021 12:11:53 07/20/2021 11:54:05 Allergic rhinitis 50294453 J30.9 saw ENT and treated for chronic sinusitis. .. CT of sinuses pending... Hyperlipidemia 26716154 E78.5 atorvastat in Lumbar spondylosis 81980 0009 M47.896 referred to PT... sx improved.. . Family his tory of cancer of colon 284934901 Z80.0 mom had Ca at 57 y.o.... colonoscop y negative [id number] Jan Hughes MD [facility] [address] [place] [address] 08/15/2021 11:25:09 08/15/2021 14:35:44 Allergic rhinitis 55910427 J30.9 follow-up if not improving [id number] Shine He MD [address] [address] 3 09/08/2021 17:16:19 09/09/2021 11:29:05 Pharyngitis 692083838 J02.9 Chronic sinusitis 759926 00 J32.9 [id number] Alex Anderson MD [address] [address] 3 09/26/2021 10:46:13 09/26/2021 20:26:22 Allergic rhinitis 24837884 J30.9 saw ENT and treated for chronic sinusitis. .. Lumbar spondylosis 01769 0009 M47.896 referred to PT... sx improved.. . Hyperlipidemia 48644368 E78.5 atorvastat in Family his tory of cancer of colon 916345941 Z80.0 mom had Ca at 57 y.o.... refer.. appt 06-27-2021 , and colonoscop y to be repeated in 5 years.. Neuropathy 443410166 G62 .9 follow up labs Pain in left foot 946943 4110 25717 M79.672 xray [id number] SHIRA PEREZ DPM [facility] [address] [place] [address] 10/07/2021 08:58:10 10/07/2021 10:09:36 Plantar fasciitis 881856902 M72.2 Metatarsal justin of left foot 2747573589 23536 M77.42 Acquired s hort left Achilles tendon 7464615998 07979 M67.02 Calcaneal spur of left foot 5502712475 16905 M77.32 Pain in left foot 216138 5145 72659 M79.500 [id number] SHIRA PEREZ DPM [facility] [address] [place] [address] 10/07/2021 12:56:56 10/11/2021 14:28:27 Plantar fasciitis 641504485 M72.2 Metatarsal justin of left foot 6009203165 60130 M77.42 Acquired s hort left Achilles tendon 8437783259 43855 M67.02 Calcaneal spur of left foot 6077401668 62149 M77.32 Pain in left foot 602645 2722 99443 M79.970 [id number] Alex Anderson MD [address] [address] 3 10/19/2021 10:04:15 10/24/2021 14:52:41 Hyperlipidemia 34075777 E78.5 atorvastat in Allergic rhinitis 692184 04 J30.9 saw ENT and treated for chronic sinusitis. .. Blood pres sure above reference range 85603258 R03.0 BP checks and see me in 1 month... [id number] Alex Anderson MD [address] [address] 3 12/06/2021 15:58:48 12/07/2021 08:10:44 Left side sciatica 7328959187 80834 M54.32 [id number] Alex Anderson MD [address] [address] 3 12/13/2021 15:16:42 12/14/2021 09:23:20 Blood pressure above reference range 46100785 R03.0 BP checks and see me in 1 - 2 month... Left side sciatica 02756 16234 66218 M54.32 better... back at work... in PT... Plantar fa sciitis of left foot 7818701211 7454443 M72.2 seeing podiatry.. . Allergic rhinitis 546745 04 J30.9 saw ENT and treated for chronic sinusitis. .. [id number] Alex Anderson MD [address] [address] 3 06/22/2022 15:00:39 06/23/2022 12:14:23 Hyperlipidemia 63785551 E78.5 atorvastat in Allergic rhinitis 947934 04 J30.9 saw ENT and treated for chronic sinusitis. .. Overweight 111818679 E66 .3 bmi=27.8 Left side sciatica 75359 00271 43061 M54.32 better... back at work... in PT... Plantar fa sciitis of left foot 3739627366 7268348 M72.2 seeing podiatry.. . Essential hypertension 41027156 I10 BP checks and see me in 1 - 2 month... [id number] Hina Arnold MD [address] [address] 3 07/15/2022 09:50:52 07/17/2022 09:36:54 Tuberculosis screening 685626482 Z11.1 RTC in 48-72 hours for read,negat carloz assessment . no restrictio ns indicated. denies asthma, heart disease and sickle cell. [id number] Alex Anderson MD [address] [address] 3 09/15/2022 14:46:56 09/18/2022 10:15:37 Overweight 505972726 E66.3 bmi=27.4 Hyperlipidemia 95316755 E78.5 atorvastat in... Allergic rhinitis 643379 04 J30.9 saw ENT and treated for chronic sinusitis. .. Left side sciatica 38397 86823 25069 M54.32 better... Plantar fa sciitis of left foot 6477916928 5086577 M72.2 seeing podiatry.. . Essential hypertension 46705790 I10 BP checks and see me in 3 month follow up... [id number] Alex Anderson MD [address] [address] 3 11/16/2022 09:42:29 11/22/2022 14:10:11 Overweight 578378316 E66.3 bmi=27.9 Hyperlipidemia 40830094 E78.5 atorvastat in... Allergic rhinitis 509190 04 J30.9 saw ENT and treated for chronic sinusitis. .. Left side sciatica 30120 04318 49091 M54.32 better... flare-ups a times... Plantar fa sciitis of left foot 3427976012 5679943 M72.2 seeing podiatry.. . stable now... Essential hypertension 04307023 I10 BP checks and see me in 1 month follow up...add amlodipine Screening mammography 24 739595 Z12.31 scheduled Screening colonoscopy 44 9787043 Z12.11 referred and done 06-27-[address] Hammer... [id number] Alex Anderson MD [address] [address] 3 12/21/2022 10:30:01 12/25/2022 10:25:36 Overweight 615407313 E66.3 bmi=27.1 Essential hypertension 48170431 I10 BP checks and see me in 1 month follow up...stop amlodipine and add imdur ER 30 mg Screening colonoscopy 44 0259274 Z12.11 referred and done 06-27-[address] Hammer... due ... [id number] Alex Anderson MD [address] [address] 3 04/26/2023 14:08:43 04/27/2023 14:36:35 Overweight 084164990 E66.3 bmi=26.8 Essential hypertension 20263369 I10 BP checks and see me in 2 month follow up...stop amlodipine and add imdur ER 30 mg [id number] Alex Anderson MD [address] [address] 3 06/25/2023 15:40:32 06/26/2023 18:40:56 Overweight 154226896 E66.3 bmi=26.6 Low back pain 330536365 M54.50 advise a back brace trial... Essential hypertension 99022934 I10 BP checks and see me in 2 month follow up...stop amlodipine and add imdur ER 30 mg... [id number] COLE POLLARD MD [facility] [address] [place] [address] 08/27/2023 15:43:53 08/28/2023 09:04:10 Overweight 584845392 E66.3 Requires a hepatitis A vaccination 118377148 Z28.39 [id number] Alex Anderson MD [address] [address] 3 08/28/2023 15:32:28 08/29/2023 11:40:43 Allergic rhinitis 73463231 J30.9 saw ENT and treated for chronic sinusitis. .. Overweight 009675835 E66 .3 bmi=25.8 Low back pain 569666985 M54.50 advise a back brace trial... Essential hypertension 21361754 I10 BP checks and see me in 2 month follow up..losart an 100 mg and increase Imdur to 60 mg daily.. [id number] BARBARA MCCORMACK NP [facility] [address] [place] [address] 10/06/2023 15:07:14 10/09/2023 11:59:32 Overweight 295702376 E66.3 Cough 36401183 R05.9 Acute sinusitis 49385948 J01.90 Essential hypertension 80660998 I10 [id number] Alex Anderson MD [address] [address] 3 11/28/2023 15:25:01 11/29/2023 09:08:42 Allergic rhinitis 26825003 J30.9 saw ENT and treated for chronic sinusitis. .. Overweight 265962681 E66 .3 bmi=25.4 Essential hypertension 54971792 I10 BP checks and see me in 2 month follow up..losart an 100 mg and increase Imdur to 60 mg daily.. Hyperlipidemia 53003810 E78.5 atorvastat in... Screening mammography 24 824913 Z12. due Screening for malignant neoplasm of breast 593872662 Z12.39 done 04-14-[address] Alonso... follow up... 2028... Low back pain 399696585 M54.50 advise a back brace, but didnt... [id number] Alex Anderson MD [address] [address] 3 02/22/2024 14:06:46 02/29/2024 14:48:24 Overweight 676542623 E66.3 bmi=25.9 Allergic rhinitis 619855 04 J30.9 saw ENT and treated for chronic sinusitis. .. Essential hypertension 96550882 I10 BP checks and see me in 2 month follow up..losart an 100 mg/Imdur to 60 mg daily.. Hyperlipidemia 13573902 E78.5 atorvastat in... Screening mammography 24 697209 Z12.31 due Screening for malignant neoplasm of breast 322242384 Z12.39 done 04-14-[address] Alonso... follow up... 2028... Low back pain 640080822 M54.50 meds prn.. Mammography abnormal 168 606873 R92.8 redo right breast next week.. [id number] COLE POLLARD MD [address] [address] 3 04/14/2024 11:17:00 04/15/2024 13:15:13 Overweight 639914485 E66.3 Pain of le ft ankle joint 0060518601 6646643 M25.584 [id number] Harmeet Lynch DPM [facility] [address] [place] [address] 04/25/2024 09:46:18 04/25/2024 13:13:49 Sprain of talofibular ligament of left ankle 0644846242 0986215 S93.492D Closed fra cture of lateral malleolus of left fibula 9404991016 8054558 S82.65XD [id number] Alex Anderson MD [address] [address] 3 04/29/2024 14:35:55 04/30/2024 09:36:48 Overweight 171064030 E66.3 bmi=26.3 Closed fra cture of left ankle 2336495527 8252967 S82.892A seeing podiatry.. . Essential hypertension 25547285 I10 BP checks and see me in 2 month follow up..losart an 100 mg/Imdur to 60 mg daily.. Hyperlipidemia 88199061 E78.5 atorvastat in... Screening mammography 24 986809 Z12.31 due Screening for malignant neoplasm of colon 704384526 Z12.11 colonoscop y due [id number] Harmeet Lynch DPM [facility] [address] [place] [address] 05/09/2024 11:56:04 05/12/2024 07:31:00 Sprain of talofibular ligament of left ankle 0442921042 7092885 S93.492D Sprain of calcaneofibular ligament 91021942 S93.412D [id number] Alex Anderson MD [address] [address] 3 05/27/2024 14:59:51 05/28/2024 09:51:31 Overweight 870641081 E66.3 bmi=26.2 Closed fra cture of left ankle 5862071484 4862595 S82.892A seeing podiatry.. . Hyperlipidemia 29276596 E78.5 atorvastat in 20 mg... Essential hypertension 85731266 I10 BP checks and see me in 3 month follow up..losart an 100 mg/Imdur to 60 mg daily.. Screening mammography 24 174827 Z12.31 due Screening for malignant neoplasm of colon 942729171 Z12.11 colonoscop y due [id number] COLE POLLARD MD [address] [address] 3 05/27/2024 15:51:40 05/28/2024 10:34:38 Fasting blood test due 579136006 Z78.9 1090296720 [id number] Harmeet Lynch DPM [facility] [address] [place] [address] 2 05/30/2024 09:12:49 05/30/2024 12:08:48 Sprain of talofibular ligament of left ankle 9085613705 7514774 S93.492D Sprain of calcaneofibular ligament of left ankle joint 3554155816 8450778 S93.412D [id number] [facility] [address] [address] 06/11/2024 10:49:41 06/11/2024 12:34:04 Sprain of talofibular ligament of left ankle 4837758578 4427977 S93.492D Sprain of calcaneofibular ligament of left ankle joint 0019225903 3350970 S93.412D [id number] Harmeet [facility] [address] [place] [address] 07/02/2024 10:08:18 07/03/2024 08:56:58 Sprain of talofibular ligament of left ankle 8532131296 4451248 S93.492D 41519497 Peroneal tendinitis 5320 8009 M76.72 66237534 [id number] Harmeet Lynch [facility] [address] [address] 07/15/2024 15:46:48 07/15/2024 16:22:35 Plantar fasciitis 454519876 M72.2 67085 Sprain of talofibular ligament of left ankle 8487113088 8041331 S93.492D 24277830 Peroneal t endinitis of left lower limb 5292642338 99571 M76.72 6840272 [id number] BARBARA MCCORMACK NP [facility] [address] [place] [address] 07/25/2024 11:15:06 07/29/2024 09:45:07 Smoker 21196867 F17.200 Overweight 442515502 E66 .3 Tuberculos is screening 112784972 Z11.1 Physical examination 588 0005 Z00.00 884354 BP is being monitored by PCP, left foot by ortho. Otherwise in good health. Paperwork completed pending TB test results. Essential hypertension 22914397 I10 70252 [id number] Alex Anderson MD [address] [address] 08/27/2024 15:18:41 08/29/2024 12:32:20 Overweight 151637624 E66.3 bmi=27.9 Low back pain 707665209 M54.50 70581007 meds prn.. Hypertensive disorder 38 251669 I10 20130437 BP checks and see me in 2 month follow up..losart an 100 mg/Imdur to ER 120 mg daily.. [id number] COLE POLLARD MD [facility] [address] [place] [address] 3 08/27/2024 16:56:57 09/11/2024 10:53:11 Laboratory test 34555250 Z01.89 796001 [id number] Shaheed Kinsey MD [facility] Blanca Barriosyner Shanon [address] [place] [address] 10/08/2024 11:22:04 10/21/2024 11:26:48 Counseling procedure with explicit context 216307528 Z71.85 61333378 Ex-smoker 1707359 Z87.89 1 740015 Overweight 445011752 E66 .3 [id number] Alex Anderson MD [address] [address] 3 10/27/2024 15:15:46 10/28/2024 13:54:12 Overweight 914834223 E66.3 bmi=27.7 Low back pain 777448485 M54.50 14485536 meds prn... seeing chiro with good results... Hypertensive disorder 38 650372 I10 44615821 BP checks and see me in 2 month follow up..losart an 100 mg/Imdur to ER 120 mg daily.. Allergic rhinitis 406461 04 J30.9 4846839511 saw ENT and treated for chronic sinusitis. .. Screening mammography 24 599938 Z12.31 8410767431 due Screening for malignant neoplasm of colon 277153417 Z12.11 170054 colonoscop y due [id number] Alex Anderson MD [address] [address] 01/27/2025 15:16:46 01/28/2025 12:17:25 Body mass index 25-29 - overweight 293915412 E66.3 837911 bmi=25.7 Overweight 588237122 E66 .3 bmi=27.7 Low back pain 929577931 M54.50 41567773 meds prn... Hypertensive disorder 38 984602 I10 17058932 BP checks and see me in 2 month follow up..losart an 100 mg/Imdur to ER 120 mg daily.. Allergic rhinitis 011536 04 J30.9 6825028404 saw ENT and treated for chronic sinusitis. .. Screening mammography 24 101122 Z12.31 2467453181 due Screening for malignant neoplasm of colon 457113017 Z12.11 129274 colonoscop y due... [id number] COLE POLLARD MD [facility] [address] [place] [address] 02/06/2025 11:47:36 02/10/2025 08:57:28 Ex-smoker 6902366 Z87.891 444847 Overweight 844117679 E66 .3 Blood pres sure above reference range 52580465 R03.0 continue your blood pressure medication s and follow up with your PCP to have your b/p rechecked. Upper resp iratory tract finding 247759097 R09.89 96007437 Inflammati on of larynx caused by virus 608980084 J04.0 B97.89 6023959 continue to push fluids and voice rest [id number] Alex Anderson MD [address] [place] [address] 02/10/2025 09:55:05 02/11/2025 12:57:24 Overweight 707063293 E66.3 bmi=26.2 Viral resp iratory infection 273342190 J98.8 B97.89 3026327 use OTC cold meds and tylenol for temps... follow up as needed... FMLA papers to return to work 02-12-2025 at full capacity.. Hypertensive disorder 38 718928 I10 59502984 BP checks in the morning only and see me in 3 month follow up..losart an 100 mg/Imdur to ER 120 mg daily.. Allergic rhinitis 556021 04 J30.9 6909454926 saw ENT and treated for chronic sinusitis. .. Screening for malignant neoplasm of colon 319198112 Z12.11 990126 colonoscop y due... Screening mammography 24 745098 Z12.31 6224972650 due Health Concerns Section Related Observation LastModified by Organization Detai ls LastModified Time None Recorded Concern Status LastModified by Organization Details LastModified Time None Recorded Advance Directives Directive N: Payers Insurance Date Sequence Insurance Name Policy Number Policy Azul Covered Member ID Azul Member ID Guarantor Name 02/06/2025 1 [facility] ON OR AFTER 09/02/20 (MEDICAID REPLACEMENT - HMO) Luan Jacobs [id number] Luan Jacobs 08/26/2018 SLIDING FEE SCHEDULE - DISCOUNT Luan Jacobs 06/22/2022 1 [facility] PRIOR TO 09/02/2020 (MEDICAID REPLACEMENT - HMO) Luan Jacobs [id number] Luan Jacobs 06/22/2022 1 [facility] PRIOR TO 09/02/2020 (MEDICAID REPLACEMENT - HMO) Luan Jacobs [id number] Luan Jacobs 08/26/2018 1 *SELF PAY* kayla Jacobs Notes Date Note Type Note Provider Name and Address Organization Details Recorded Time 10/27/2024 text/html ROS as noted in the HPI no fevers/chills/SOB. .. no S/H ideations.. no smoking/drinking.. low back sx resolved after chiropractor treatment... did not do PT.. Alex Anderson MD Attn: Accounting[address] [facility], [place], [address], [facility] - [facility] 10/27/2024 15:47:40 01/27/2025 text/html ROS as noted in the HPI here for follow up... no S/H ideations... stressed with daughter... no smoking/drinking.. . Alex Anderson MD Attn: Accounting[address] [place], [place], [address] [place] [address], [facility] - [facility] 01/27/2025 16:37:47 02/06/2025 text/html Luan Jacobs is a 54 y/o female who presents with reports of having mild URI symptoms for a week and lost her voice as well. She denies sore throat, she sates mild non productive cough. KEITH ALLEN NP Attn: [address]ing[address] [place], [address], [facility] - [facility] 02/06/2025 12:34:38 02/10/2025 text/html ROS as noted in the HPI was seen in ER 02-06-2025 after becoming ill/alejandro virus daughter had with sx 02-02-2025..... coughing/ST/headac he/Chest pains... no fevers/SOB, but chills... no smoking/drinking.. . Alex Anderson MD Attn: Accounting[address] [facility], [place], [address], [place] - [facility] 02/10/2025 11:10:27 OBGyn Episode No OBEpisode recorded.
--- OUTSIDE RECORDS SUMMARY | 2025-02-20 09:18 | XMS_ITS | Continuity of Care Document ---
Author Organization [facility] Address [address] [place] [address] Care Team Providers Care Pbx Operator Name Role Phone ALEX ANDERSON Primary Care Provider Assessment No assessment recorded. Plan of Treatment Reminders Order Date Submit Date Provider Last Modified By Organization Details Last Modified Time Details Appointments ANY 15 2025 02:30P Bere Anderson MD Not available Not available Not available Lab None record ed. Referral None record ed. Procedures None record ed. Surgeries None record ed. Imaging MAMMO, screen ing, bilate ral 2024 025 [facility] ([facility] [address] [place], [address], 02/10/2025 11:08:28 Medication Orders None record ed. Patient TargetsNo targets recorded. Patient Instructions Encounter Date Encounter Id Patient Instructions Last Modified By Organization Details Last Modified Time 02/10/2025 [id number] mammogram: about this test Not available 02/10/2025 11:07:37 allergies: care instructions Not available 02/10/2025 11:07:37 A healthy lifestyle: care instructions Not available 02/10/2025 11:07:37 Reason for Referral None Reported. Results Created Date Observation Date Name Description Value Unit Range Abnormal Flag Note LastModifiedBy Organization Detail LastModifiedTime 02/07/20 25 02/06/2025 influ kalina virus A + B + SARS- CoV-2 (COVI D19) Ag panel , rapid IA, upper respi rator y speci men Flu A negati ve Not Available In-Office Order Internal Use Only DO Not Attach Compendium DO Not Attach Compendium, Do Not Delete/merge, [id number] 02/06/2025 12:11:18 02/07/20 25 02/06/2025 influ kalina virus A + B + SARS- CoV-2 (COVI D19) Ag panel , rapid IA, upper respi rator y speci men Flu B negati ve Not Available In-Office Order Internal Use Only DO Not Attach Compendium DO Not Attach Compendium, Do Not Delete/merge, [id number] 02/06/2025 12:11:18 02/07/20 25 02/06/2025 influ kalina virus A + B + SARS- CoV-2 (COVI D19) Ag panel , rapid IA, upper respi rator y speci men Rapid SARS CoV 2 Ag, QL IA, respiratory specimen negati ve Not Available In-Office Order Internal Use Only DO Not Attach Compendium DO Not Attach Compendium, Do Not Delete/merge, [id number] 02/06/2025 12:11:18 02/07/2002/06/2025 rapid strep group A, throa t Strep negati ve Not Available In-Office Order Internal Use Only DO Not Attach Compendium DO Not Attach Compendium, Do Not Delete/merge, [id number] 02/06/2025 12:11:22 Result Notes None recorded. Problems Name Problem SNOMED Code Status Onset Date Resolution Date Notes Provider Name and Address Organization Details Recorded Time Allergic rhinitis 54268268 Active Not Available [facility] 4 20:16:06 Tuberculos is screening Active 2016 Not Available [facility] 4 20:16:06 Amenorrhea 79162297 Active 2016 Not Available [facility] 4 20:16:06 Physical examinatio n 3396708 Active 2018 Not Available [facility] 4 20:16:06 Requires tetanus and diphtheria vaccinatio n 107120278 Active 2018 Not Available [facility] 4 20:16:07 Acute sinusitis 47664681 Active 2021 Not Available [facility] 4 20:16:06 Pharyngiti s 269526369 Active 2021 Not Available [facility] 4 20:16:06 Hyperlipid emia 45728576 Active 2021 Not Available [facility] 4 20:16:06 Polyneurop athy 24205813 Active 2021 [facility] [place], [place] - [facility] 5 11:35:49 Lumbar spondylosi s 558330445 Active 2021 Not Available [facility] 4 20:16:06 Neuropathy 370661738 Active 2021 Not Available [facility] 4 20:16:06 Left side sciatica 9093151844546 04 Active 2021 Not Available [facility] 4 20:16:06 Blood pressure above reference range 89077527 Active 2021 Not Available [facility] 4 20:16:06 Problem Notes None recorded. Procedures Surgical History Date Name Laterality Status Provider Name and Address Organization Details Recorded Time 4 Date of Last Mammogram completed Hilda Larsen MA [place] - [place] 07/25/2024 11:37:02 0 Date of Last Pap Smear completed [facility] - [place] 07/25/2024 11:37:21 Imaging Results None recorded. Procedure Notes None recorded. Medical Equipment None Reported. Allergies Allergen ID Allergen Name Allergen Category Reaction Reaction Severity Criticality Documentation Date Start Date Code Code System Note Provider Name and Address Organization Details Recorded Time 580096 amlodipin e medicatio n edema mild Not available 06/25/2023 71740 RxNorm Alex Anderson MD Attn: Jeremy g,[address] [facility], [place], [address], [place] - [place] 4 16:17:09 04130 Substance with sulfonami de structure and antibacte rial mechanism of action (substanc e) medicatio n rash Not available low 08/03/20152018 56492 8003 SNOMED [facility] [place] - [facility] 5 11:34:50 Medications Name Sig Start Date [...] Not Available No t Available amoxicillin 875 mg-potzacharyiu m clavulanate 125 mg tablet Take 1 [...] Updated DateTime 5 160.02 cm 26.2 kg/m2 42289.3 7 g 97 % 85 /min 18 /min 97.9 [degF] 147/85 mm[Hg] Adolfo Crews MA [place] - [facility] 5 10:28:05 Social History Question Answer Notes LastModified by Organizat ion Details LastModified Time Tobacco Smoking Status Former Smoker Kirsty Sargent [place], [place] - [place] 12/20/2015 14:24:00 Do You Have An Advance [...] Do You Have A Medical Power Of Pedal Assembler? No [email or web address] Information not available 10/07/2021 What [...] anxious, or unable to sleep at night)? [id number] [email or web address] Information not available 08/27/2023 Family History Nothing Reported. Medical History Condition Response Allergies/Hayfever Y Coronary Artery Disease N Other N High Blood Pressure N Atrial Fibrillation N Thyroid Problems N Kidney or Bladder Problems N GI Problems N Blood Clots N COPD N Depression N Have you had a mammogram in the last yea r? Y Skin Problems N Anemia N Heart Attack (NH) N Anxiety Disorder N Diabetes N Muscle, [...] Cholesterol N Hepatitis N Liver Disease N Headaches N Schizophrenia N Hypertension N Osteoporosis N Heart Failure N Gynecological History Statement/Question Response Menses Monthly [...] 50 mcg/0.25mL dose 05/18/2020 completed Not Available [facility] 5 09:55:44 COVID-19, mRNA, LNP-S, PF, 100 mcg/0.5mL dose or 50 mcg/0.25mL dose 06/15/2020 completed Not Available [facility] 5 09:55:44 Tdap 11/14/2018 completed Not Available [facility] 03/22/2019 02:38:07 Hep A, adult 08/27/2023 completed Bony Barth MA [facility], [place] - [facility] 08/27/2023 16:18:11 Past Encounters Encounter ID Performer Location Encounter Start Date Encounter Closed Date Diagnosis/Indication Diagnosis SNOMED-CT Code Diagnosis ICD10 Code Diagnosis IMO Codes Diagnosis Note [id number] Alex Anderson MD [address] [address] 01/27/2025 15:16:46 01/28/2025 12:17:25 Body mass index 25-29 - overweight 328790408 E66.3 114967 bmi=25.7 Overweight 867594169 E66 .3 bmi=27.7 Low back pain 439414480 M54.50 20735911 meds prn... Hypertensive disorder 38 308071 I10 28777995 BP checks and see me in 2 month follow up..losart an 100 mg/Imdur to ER 120 mg daily.. Allergic rhinitis 536630 04 J30.9 2094595891 saw ENT and treated for chronic sinusitis. .. Screening mammography 24 284405 Z12.31 4766103637 due Screening for malignant neoplasm of colon 174505348 Z12.11 875281 colonoscop y due... [id number] COLE POLLARD MD [facility] [address] [place] [address] 02/06/2025 11:47:36 02/10/2025 08:57:28 Ex-smoker 6186225 Z87.891 350028 Overweight 734331512 E66 .3 Blood pres sure above reference range 23704156 R03.0 continue your blood pressure medication s and follow up with your PCP to have your b/p rechecked. Upper resp iratory tract finding 287667970 R09.89 48071122 Inflammati on of larynx caused by virus 372057211 J04.0 B97.89 5273236 continue to push fluids and voice rest [id number] Alex Anderson MD [address] [address] 02/10/2025 09:55:05 02/11/2025 12:57:24 Overweight 055398402 E66.3 bmi=26.2 Viral resp iratory infection 467393459 J98.8 B97.89 4262297 use OTC cold meds and tylenol for temps... follow up as needed... FMLA papers to return to work 02-12-2025 at full capacity.. Hypertensive disorder 38 216928 I10 72372399 BP checks in the morning only and see me in 3 month follow up..losart an 100 mg/Imdur to ER 120 mg daily.. Allergic rhinitis 227239 04 J30.9 5763019995 saw ENT and treated for chronic sinusitis. .. Screening for malignant neoplasm of colon 715958300 Z12.11 765658 colonoscop y due... Screening mammography 24 300827 Z12.31 8532292852 due Health Concerns Section Related Observation LastModified by Organization Detai ls LastModified Time None Recorded Concern Status LastModified by Organization Details LastModified Time None Recorded Payers Encounter Date Sequence Insurance Name Policy Number Policy Azul Covered Member ID Azul Member ID Guarantor Name 02/10/2025 1 [facility] [place] ON OR AFTER 20 (MEDICAID REPLACEMENT - HMO) Luan Jacobs [id number] Luan Jacobs Notes Date Note Type Note Provider Name and Address Organization Details Recorded Time 02/10/2025 text/html ROS as noted in the HPI was seen in ER 02-06-2025 after becoming ill/alejandro virus daughter had with sx 02-02-2025..... coughing/ST/hea dache/Chest pains... no fevers/SOB, but chills... no smoking/drinkin g... Alex Anderson MD Attn: Accounting,[address] [facility], [place], [address], [facility] - [facility] 02/10/2025 11:10:27 OBGyn Episode No OBEpisode recorded.
--- OUTSIDE RECORDS SUMMARY | 2025-02-20 09:18 | XMS_ITS | Clinical Summary ---
Author Organization [facility] Address [address] [place] [address] Care Team Providers Care Restaurant Area Manager Name Role Phone Alex Anderson MD Primary Care Provider [phone] Allergies Active Allergy Reactions Criticality Noted Date Comments Sulfa Swelling Medium 08/20/2024 Medications ketorolac (TORADOL) 10 mg tablet Take 1 tablet (10 mg total) by mouth every 6 (six) hours as needed for pain 30 tablet 08/20/2024 Active cyclobenzaprine (FLEXERIL) 10 mg tablet Take 1 tablet (10 mg total) by mouth 2 (two) times a day as needed for muscle spasms 20 tablet 08/20/2024 Active HYDROcodone-acet aminophen (NORCO) 5-325 mg per tabletIndication s:Pain Take 1 tablet by mouth every 6 (six) hours as needed for pain 8 tablet 08/20/2024 Active Social History Tobacco Use Types Packs/Day Years Used Date Smoking Tobacco: Never Assessed Personal Safety Answer Date Recorded Have you ever been in or are you currently in a harmful physical or emotional relationship or is someone making you feel afraid or unsafe? 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 Gender Identity Not on file Sexual Orientation Not on file Last Filed Vital Signs Vital Sign Reading Time Taken Comments Blood Pressure 153/74 08/20/2024 10:30 AM CDT Pulse 66 08/20/2024 10:30 AM CDT Temperature 36.7 C (98.1 F) 08/20/2024 8:59 AM CDT Respiratory Rate 18 08/20/2024 10:30 AM CDT Oxygen Saturation 100% 08/20/2024 10:30 AM CDT Inhaled Oxygen Concentration - - Weight 68 kg (150 lb) 08/20/2024 8:59 AM CDT Height 160 cm (5' 3) 08/29/2017 8:17 AM CDT Body Mass Index 26.57 08/29/2017 8:17 AM CDT Plan of Treatment Health Maintenance Due Date Last Done Comments Breast Cancer Screening-Mammogram 1972 Cervical Cancer Screening 1972 Colon Cancer Screening-Colonoscopy 1972 Depression Screening 1972 Hepatitis C Screening 1972 Hepatitis B Screening 1990 Regular Well Visit/Exam 18-64 1990 Zoster Vaccine (1 of 2) 2022 Covid-19 Vaccine (3 - 2024-2 6 season) 2024 06/15/2020, 05/18/2020 Influenza Vaccine (#1) 2024 DTaP/Tdap/Td Vaccine (2 - Td or Tdap) 11/14/2028 11/14/2018 Pneumococcal vaccine <65 Aged Out No longer eligible based on patient's age to complete this topic Insurance [facility] [address] [place] [address] Care Teams Restaurant Area Manager Relationship Specialty Start Date End Date Alex Anderson MD [address] [place] [id number] PCP - General Family Medicine 08/20/24
--- OUTSIDE RECORDS SUMMARY | 2025-02-20 09:18 | XMS_ITS | Clinical Summary ---
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 Gender Identity Not on file Sexual Orientation Not on file Plan of Treatment Health Maintenance Due Date Last Done Comments Hepatitis C Virus (HCV) Screening 1972 Hepatitis B Immunization (1 of 3 - 19+ 3-dose series) 06/01/1991 Pap Smear 1993 Cervical Cancer Screening (CCS) 2002 HPV/Cotest 2002 Cologuard 2017 Colonoscopy 2017 Colorectal Cancer Screening 2017 Immunochemical Fecal Occult Blood 2017 Pneumococcal Immunization (5 0+ years) (1 of 1 - PCV) 2022 Zoster Immunization (1 of 2) 2022 Influenza Immunization (#1) 2024 SARS-COV-2 Immunization (3 - season) 2024 06/15/2020, 05/18/2020 Respiratory Syncytial Virus (RSV) Immunization (Adult) (1 - 1-dose 75+ series) 06/01/2047 DTaP/Tdap/Td Immunization Discontinued 11/14/2018 TdaP Immunization Completed 11/14/2018 Human Papillomavirus (HPV) Immunization Aged Out No longer eligible based on patient's age to complete this topic Meningococcal Immunization (ACWY) Aged Out No longer eligible based on patient's age to complete this topic Rotavirus Immunization Aged Out No lo nger eligible based on patient's age to complete this topic
--- OUTSIDE RECORDS SUMMARY | 2025-02-20 09:18 | XMS_ITS | Continuity of Care Document ---
Author Organization [facility] Address [address] [place] [address] Care Team Providers Care Timber Harvester Operator Name Role Phone ALEX ANDERSON Primary Care Provider [phone] Assessment No assessment recorded. Plan of Treatment Reminders Order Date Submit Date Provider Last Modified By Organization Details Last Modified Time Details Appointments ANY 15 2025 02:30P Bere Anderson MD Not available Not available Not available Lab None recorded. Referral None recorded. Procedures None recorded. Surgeries None recorded. Imaging MAMMO, screening , bilateral 2024 [facility] ([facility] [address] [place], [address], 01/27/2025 16:50:40 Medication Orders losartan 100 mg tablet 2024 [facility], [address] [place] [address], [phone], 01/27/2025 16:37:20 isosorbid e mononitra te ER 120 mg tablet,ex tended release 24 hr 2024 025 [id number], [facility] [place], [place], [phone], 01/27/2025 16:37:16 Patient TargetsNo targets recorded. Patient Instructions Encounter Date Encounter Id Patient Instructions Last Modified By Organization Details Last Modified Time 01/27/2025 [id number] allergies: care instructions Not available 01/27/2025 16:37:11 mammogram: about this test Not available 01/27/2025 16:37:11 A healthy lifestyle: care instructions Not available 01/27/2025 16:37:11 back care and preventing injuries: care instructions Not available 01/27/2025 16:37:10 learning about healthy weight Not available 01/27/2025 16:37:10 Reason for Referral None Reported. Problems Name Problem SNOMED Code Status Onset Date Resolution Date Notes Provider Name and Address Organization Details Recorded Time Allergic rhinitis 72349431 Active Not Available [facility] 4 20:16:06 Tuberculos is screening Active 2016 Not Available [facility] 4 20:16:06 Amenorrhea 65295121 Active 2016 Not Available [facility] 4 20:16:06 Physical examinatio n 3408623 Active 2018 Not Available [facility] 4 20:16:06 Requires tetanus and diphtheria vaccinatio n 307914933 Active 2018 Not Available [facility] 4 20:16:07 Acute sinusitis 54042957 Active 2021 Not Available [facility] 4 20:16:06 Pharyngiti s 115047865 Active 2021 Not Available [facility] 4 20:16:06 Hyperlipid emia 11236890 Active 2021 Not Available [facility] 4 20:16:06 Polyneurop athy 57210440 Active 2021 Hilda Larsen MA null, [place] - [facility] 5 11:35:49 Lumbar spondylosi s 364727802 Active 2021 Not Available [facility] 4 20:16:06 Neuropathy 464152087 Active 2021 Not Available [facility] 4 20:16:06 Left side sciatica 7333159667660 04 Active 2021 Not Available [facility] 4 20:16:06 Blood pressure above reference range 14855862 Active 2021 Not Available [facility] 4 20:16:06 Problem Notes None recorded. Procedures Surgical History Date Name Laterality Status Provider Name and Address Organization Details Recorded Time 4 Date of Last Mammogram completed Hilda Larsen MA [facility] 07/25/2024 11:37:02 0 Date of Last Pap Smear completed Hilda Larsen MA [facility] 07/25/2024 11:37:21 Imaging Results None recorded. Procedure Notes None recorded. Medical Equipment None Reported. Allergies Allergen ID Allergen Name Allergen Category Reaction Reaction Severity Criticality Documentation Date Start Date Code Code System Note Provider Name and Address Organization Details Recorded Time 793655 amlodipin e medicatio n edema mild Not available 06/25/2023 42324 RxNorm Alex Anderson MD Attn: Jeremy galan,[address] [place], [address] [place] [address] 4 16:17:09 49446 Substance with sulfonami de structure and antibacte rial mechanism of action (substanc e) medicatio n rash Not available low 08/03/20152018 00023 8003 SNOMED Hilda Larsen MA [facility], [facility] 5 11:34:50 Medications Name Sig Start Date [...] Last Updated DateTime 160.02 cm 25.7 kg/m2 96006.8 9 g 99 % 79 /min 18 /min 98 [degF] 124/79 mm[Hg] Adolfo Crews MA [facility] 5 15:56:06 Date Recorded Heart rate Heart rate Systolic And Diastolic Systolic And Diastolic Provider Name and Address Organization Details Last Updated DateTime 01/27/2025 82 /min 74 /min 118/86 mm[Hg] 113/80 mm[Hg] Not Available Esvyda! 02/04/2025 09:16:31 Social History Question Answer Notes LastModified by Organizat ion Details LastModified Time Tobacco Smoking Status Former Smoker Kirsty wilson [facility] 12/20/2015 14:24:00 Do You Have An Advance [...] Do You Have A Medical Power Of Watch Crystal Molder? No [email or web address] Information not available 10/07/2021 What [...] anxious, or unable to sleep at night)? [id number] Information not available 08/27/2023 Family History Nothing Reported. Medical History Condition Response Allergies/Hayfever Y Coronary Artery Disease N Other N High Blood Pressure N Atrial Fibrillation N Thyroid Problems N Kidney or Bladder Problems N GI Problems N Depression N COPD N Blood Clots N Have you had a mammogram in the last yea r? Y Skin Problems N Anemia N Heart Attack ([place]) N Anxiety Disorder N Diabetes N Muscle, [...] 50 mcg/0.25mL dose 05/18/2020 completed Not Available [facility] 5 09:55:44 COVID-19, mRNA, LNP-S, PF, 100 mcg/0.5mL dose or 50 mcg/0.25mL dose 06/15/2020 completed Not Available [facility] 5 09:55:44 Tdap 11/14/2018 completed Not Available [facility] 03/22/2019 02:38:07 Hep A, adult 08/27/2023 completed Bony Barth MA [facility], [place] - [facility] 08/27/2023 16:18:11 Past Encounters Encounter ID Performer Location Encounter Start Date Encounter Closed Date Diagnosis/Indication Diagnosis SNOMED-CT Code Diagnosis ICD10 Code Diagnosis IMO Codes Diagnosis Note [id number] Alex Anderson MD [address] [address] 01/27/2025 15:16:46 01/28/2025 12:17:25 Body mass index 25-29 - overweight 907994859 E66.3 917863 bmi=25.7 Overweight 040739937 E66 .3 bmi=27.7 Low back pain 089553630 M54.50 32791076 meds prn... Hypertensive disorder 38 939437 I10 53849111 BP checks and see me in 2 month follow up..losart an 100 mg/Imdur to ER 120 mg daily.. Allergic rhinitis 416949 04 J30.9 8353528290 saw ENT and treated for chronic sinusitis. .. Screening mammography 24 777113 Z12.31 8569149068 due Screening for malignant neoplasm of colon 934438843 Z12.11 182004 colonoscop y due... Health Concerns Section Related Observation LastModified by Organization Detai ls LastModified Time None Recorded Concern Status LastModified by Organization Details LastModified Time None Recorded Payers Encounter Date Sequence Insurance Name Policy Number Policy Azul Covered Member ID Azul Member ID Guarantor Name 01/27/2025 1 [facility] ON OR AFTER 09/02/20 (MEDICAID REPLACEMENT - HMO) Luan aJcobs [id number] Luan Jacobs Notes Date Note Type Note Provider Name and Address Organization Details Recorded Time 01/27/2025 text/html ROS as noted in the HPI here for follow up... no S/H ideations... stressed with daughter... no smoking/drinkin g... Alex Anderson MD Attn: Accounting,[address] [facility], [place], [address], [facility] 01/27/2025 16:37:47 OBGyn Episode No OBEpisode recorded.
--- OUTSIDE RECORDS SUMMARY | 2025-02-20 09:19 | XMS_ITS | Continuity of Care Document ---
Author Organization [place] [facility] Address [address] [place] [address] Care Team Providers Care Mash Filter Operator Name Role Phone ALEX DESIR Primary Care Provider Assessment Encounter Date Assessment Date Assessment LastModified [...] Details Appointments ANY 15 2025 02:30P Bere Desir MD Not available Not available Not available Lab influenza virus A + B + SARS-CoV- 2 (COVID19) Ag panel, rapid IA, upper respirato ry specimen 2024 025 In-Office Order, Internal Use Only DO Not Attach Compendium DO Not Attach Compendium, Do Not Delete/merge, [id number] 02/06/2025 12:25:26 rapid strep group A, throat 2024 025 In-Office Order, Internal Use Only DO Not Attach Compendium DO Not Attach Compendium, Do Not Delete/merge, [id number] 02/06/2025 12:25:26 Referral None recorded. Procedures None recorded. Surgeries None recorded. Imaging None recorded. Medication Orders None recorded. Patient TargetsNo targets recorded. Patient Instructions Encounter Date Encounter Id Patient Instructions Last Modified By Organization Details Last Modified Time 02/06/2025 [id number] A healthy lifestyle: care instructions Not available [...] to the ER. Not available 02/06/2025 12:26:05 Reason for Referral None Reported. Results Created Date Observation Date Name Description Value Unit Range Abnormal Flag Note LastModifiedBy Organization Detail LastModifiedTime 02/07/2002/06/2025 influ kalina virus A + B + SARS- CoV-2 (COVI D19) Ag panel , rapid IA, upper respi rator y speci men Flu A negati ve Not Available In-Office Order Internal Use Only DO Not Attach Compendium DO Not Attach Compendium, Do Not Delete/merge, [id number] 02/06/2025 12:11:18 02/07/2002/06/2025 influ kalina virus A + B + SARS- CoV-2 (COVI D19) Ag panel , rapid IA, upper respi rator y speci men Flu B negati ve Not Available In-Office Order Internal Use Only DO Not Attach Compendium DO Not Attach Compendium, Do Not Delete/merge, [id number] 02/06/2025 12:11:18 02/07/20 25 02/06/2025 influ kalina virus A + B + SARS- CoV-2 (COVI D19) Ag panel , rapid IA, upper respi rator y speci men Rapid SARS CoV 2 Ag, QL IA, respiratory specimen negati ve Not Available In-Office Order Internal Use Only DO Not Attach Compendium DO Not Attach Compendium, Do Not Delete/merge, [id number] 02/06/2025 12:11:18 02/07/2002/06/2025 rapid strep group A, throa t Strep negati ve Not Available In-Office Order Internal Use Only DO Not Attach Compendium DO Not Attach Compendium, Do Not Delete/merge, [id number] 02/06/2025 12:11:22 Result Notes None recorded. Problems Name Problem SNOMED Code Status Onset Date Resolution Date Notes Provider Name and Address Organization Details Recorded Time Allergic rhinitis 34991581 Active Not Available [facility] 4 20:16:06 Tuberculos is screening Active 2016 Not Available [facility] 4 20:16:06 Amenorrhea 88298026 Active 2016 Not Available [facility] 4 20:16:06 Physical examinatio n 3974518 Active 2018 Not Available [facility] 4 20:16:06 Requires tetanus and diphtheria vaccinatio n 540750162 Active 2018 Not Available [facility] 4 20:16:07 Acute sinusitis 99129133 Active 2021 Not Available [facility] 4 20:16:06 Pharyngiti s 417342986 Active 2021 Not Available [facility] 4 20:16:06 Hyperlipid emia 20578676 Active 2021 Not Available [facility] 4 20:16:06 Polyneurop athy 07012334 Active 2021 Hilda Larsen MA null, [place] - [facility] 5 11:35:49 Lumbar spondylosi s 749515589 Active 2021 Not Available [facility] 4 20:16:06 Neuropathy 167754893 Active 2021 Not Available [facility] 4 20:16:06 Left side sciatica 5999243422264 04 Active 2021 Not Available [facility] 4 20:16:06 Blood pressure above reference range 19252327 Active 2021 Not Available [facility] 4 20:16:06 Problem Notes None recorded. Procedures Surgical History Date Name Laterality Status Provider Name and Address Organization Details Recorded Time 4 Date of Last Mammogram completed Hilda Larsen MA [facility] 07/25/2024 11:37:02 0 Date of Last Pap Smear completed Hilda Larsen MA [facility] 07/25/2024 11:37:21 Imaging Results None recorded. Procedure Notes None recorded. Medical Equipment None Reported. Allergies Allergen ID Allergen Name Allergen Category Reaction Reaction Severity Criticality Documentation Date Start Date Code Code System Note Provider Name and Address Organization Details Recorded Time 522747 amlodipin e medicatio n edema mild Not available 06/25/2023 01874 RxNorm Alex Desir MD Attn: Pradeeperin galan,[address] [facility], [place], [address] [place] [address] 4 16:17:09 86936 Substance with sulfonami de structure and antibacte rial mechanism of action (substanc e) medicatio n rash Not available low 08/03/20152018 21999 8003 SNOMED Hilda Larsen MA null, [facility] 5 11:34:50 Medications Name Sig Start Date [...] Available Not Available pantoprazol e 40 mg tablet,dontia yed release active Not Available Not Available [...] Not Available Not Available No t Available .5/30 (28) 1.5 mg-30 mcg (21)/75 mg (7) [...] Details Last Updated DateTime 5 160.02 cm 26.6 kg/m2 07144.6 1 g 96 % 76 /min 18 /min 98.4 [degF] 172/84 mm[Hg] Chandrika Sullivan MA [facility] 5 12:10:03 Social History Question Answer Notes LastModified by Organizat ion Details LastModified Time Tobacco Smoking Status Former Smoker Kirsty Arie wilson, [place] - [facility] 12/20/2015 14:24:00 Do You Have An Advance [...] Do You Have A Medical Power Of Poacher Operator? No [email or web address] Information not available 10/07/2021 What [...] anxious, or unable to sleep at night)? [id number] Information not available 08/27/2023 Family History Nothing Reported. Medical History Condition Response Allergies/Hayfever Y Coronary Artery Disease N Other N High Blood Pressure N Atrial Fibrillation N Thyroid Problems N Kidney or Bladder Problems N GI Problems N Depression N COPD N Blood Clots N Have you had a mammogram in the last yea r? Y Skin Problems N Anemia N Heart Attack ([place]) N Anxiety Disorder N Diabetes N Muscle, [...] 50 mcg/0.25mL dose 05/18/2020 completed Not Available [facility] 09:55:44 COVID-19, mRNA, LNP-S, PF, 100 mcg/0.5mL dose or 50 mcg/0.25mL dose 06/15/2020 completed Not Available [facility] 09:55:44 Tdap 11/14/2018 completed Not Available [facility] 03/22/2019 02:38:07 Hep A, adult 08/27/2023 completed Bony Barth MA [facility] 08/27/2023 16:18:11 Past Encounters Encounter ID Performer Location Encounter Start Date Encounter Closed Date Diagnosis/Indication Diagnosis SNOMED-CT Code Diagnosis ICD10 Code Diagnosis IMO Codes Diagnosis Note [id number] Alex Desir MD [address] [address] 01/27/2025 15:16:46 01/28/2025 12:17:25 Body mass index 25-29 - overweight 614893659 E66.3 701814 bmi=25.7 Overweight 109679997 E66 .3 bmi=27.7 Low back pain 386202245 M54.50 11618213 meds prn... Hypertensive disorder 38 566930 I10 21198171 BP checks and see me in 2 month follow up..losart an 100 mg/Imdur to ER 120 mg daily.. Allergic rhinitis 943493 04 J30.9 5719274801 saw ENT and treated for chronic sinusitis. .. Screening mammography 24 924392 Z12.31 8451252385 due Screening for malignant neoplasm of colon 264727417 Z12.11 212586 colonoscop y due... [id number] COLE POLLARD MD [facility] [address] [place] [address] 02/06/2025 11:47:36 02/10/2025 08:57:28 Ex-smoker 5613968 Z87.891 494273 Overweight 576284340 E66 .3 Blood pres sure above reference range 32794195 R03.0 continue your blood pressure medication s and follow up with your PCP to have your b/p rechecked. Upper resp iratory tract finding 219161883 R09.89 71711836 Inflammati on of larynx caused by virus 577343346 J04.0 B97.89 3490061 continue to push fluids and voice rest Health Concerns Section Related Observation LastModified by Organization Detai ls LastModified Time None Recorded Concern Status LastModified by Organization Details LastModified Time None Recorded Payers Encounter Date Sequence Insurance Name Policy Number Policy Azul Covered Member ID Azul Member ID Guarantor Name 02/06/2025 1 [facility] ON OR AFTER 09/02/20 (MEDICAID REPLACEMENT - HMO) Luan Jacobs [id number] Thompsonharley Harley Susan Notes Date Note Type Note Provider Name and Address Organization Details Recorded Time 02/06/2025 text/html Luan Jacobs is a 54 y/o female who presents with reports of having mild URI symptoms for a week and lost her voice as well. She denies sore throat, she sates mild non productive cough. KEITH ALLEN NP Attn: Accounting,[address] [facility], [place], [address], [facility] 02/06/2025 12:34:38 OBGyn Episode No OBEpisode recorded.
== END 2025-02-20 09:01 | disposition home or self-care (01) ==
LOC: ANHFOHIMG 09:02
PROVIDERS: PCP Family Medicine; Visit Provider Nurse Practitioner
DX: Z12.31 Encounter for screening mammogram for malignant neoplasm of breast (principal)
CPT/HCPCS: 77063; 77067